=== PATIENT | female | born 1985 | race Two or more races ===

== ENCOUNTER 2019-03-05 07:58 | Outpatient (CLI) | payer OTHER ==
[~2019-03-05] VITALS: Ht 152.4 cm; Wt 53.1 kg
== END 2019-03-05 08:15 | disposition home or self-care (01) ==
LOC: OFIC 805 07:58
DX: H90.3 Sensorineural hearing loss, bilateral (principal); H93.13 Tinnitus, bilateral; H93.233 Hyperacusis, bilateral

== ENCOUNTER 2019-04-19 15:44 | Outpatient (CLI) | payer OTHER ==
[~2019-04-19] VITALS: Ht 152.4 cm; Wt 53.1 kg
== END 2019-04-19 16:00 | disposition home or self-care (01) ==
LOC: OFIC 805 15:44
DX: H90.3 Sensorineural hearing loss, bilateral (principal); H93.13 Tinnitus, bilateral

== ENCOUNTER 2019-05-31 08:24 | Outpatient (CLI) | payer OTHER | END 2019-05-31 08:40 | disposition home or self-care (01) | LOC: OFIC 805 08:24 | DX: H90.3 Sensorineural hearing loss, bilateral (principal); H93.13 Tinnitus, bilateral; H81.49 Vertigo of central origin, unspecified ear ==

== ENCOUNTER 2020-02-28 08:45 | Inpatient (IN) | payer OTHER ==
[~2020-02-28] VITALS: Ht 154.9 cm; Wt 64.9 kg
[2020-03-09] MEDS ORDERED: PHENERGAN25 MG PO (11:59)
[2020-03-09] MEDS ORDERED: PROTONIX40 MG PO (11:59)
[2020-03-09] MEDS ORDERED: SYNTHROID50 MCG PO (11:59)
[2020-03-09] MEDS ORDERED: PEPCID AC20 MG PO (12:24)
[2020-03-09] MEDS ORDERED: GAVISCON 80-141 EACH PO (12:25)
[2020-03-09] MEDS ORDERED: PRENATAL TABLE1 EACH PO (12:25)
== END 2020-03-12 14:45 | disposition home or self-care (01) | DRG 807 ==
LOC: LDR 08:45 → SURG-SUITE 03-10 05:15
PROVIDERS: ADMIT Obstetrics & Gynecology
PROC: 10E0XZZ Delivery of Products of Conception, External Approach (ICD-10-PCS; principal; 2020-03-10)
PROC: 3E033VJ Introduction of Other Hormone into Peripheral Vein, Percutaneous Approach (ICD-10-PCS; 2020-03-10)
PROC: 4A1HXFZ Monitoring of Products of Conception, Cardiac Rhythm, External Approach (ICD-10-PCS; 2020-03-10)
DX: O13.4 Gestational [pregnancy-induced] hypertension without significant proteinuria, complicating childbirth (principal); Z37.0 Single live birth; O70.0 First degree perineal laceration during delivery; O99.284 Endocrine, nutritional and metabolic diseases complicating childbirth; Z3A.39 39 weeks gestation of pregnancy